=== PATIENT | male | born 1970 | race Caucasian/White ===

== ENCOUNTER 2018-11-01 06:54 | Day surgery (SDC) | payer OTHER, SELFPAY ==
--- NOTE | 2018-11-01 | PATH_ITS ---
[facility] Accession Number: [id number] . 01 Material submitted: . PART A: TRANSVERSE COLON POLYP PART B: RECTO-SIGMOID COLON POLYP . 02 Diagnosis: A. Transverse Colon Polyp: Polypoid-shaped fragment of colon mucosa associated with prominent mucosal lymphoid aggregate. Negative for dysplasia and malignancy. . B. Biopsy, Rectosigmoid Colon Polyp: Hyperplastic polyp involving both biopsy fragments. MRV/11/02/2018 . 02 Electronically signed: . Dm Carrillo MD, Pathologist NPI- [id number] . 01 Gross description: . Part A: TRANSVERSE COLON POLYP: Received in formalin are multiple fragment(s) of cheung, soft tissue measuring 0.5 x 0.3 x 0.2 cm submitted entirely in 1 cassette(s) Part B: RECTO-SIGMOID COLON POLYP: Received in formalin are 2 fragment(s) of cheung, soft tissue measuring 0.6 x 0.3 x 0.3 cm to 0.5 x 0.4 x 0.2 cm submitted entirely in 1 cassette(s) /CKI /CKI . 02 Pathologist provided ICD-10: K63.5 . 02 CPT . 689114, [id number] Performed at: 01 [facility] [address], [place], [place] [id number] MD Chavez Henley MD Phone: [phone] Performed at: 02 [facility] [address] [place], [place] [id number] MD Belen Muniz MD Phone: [phone]
[2018-11-01 07:07] VITALS: BP 155/106; PULSE 67; RESP 15; TEMP 36.1; O2SAT 96; BMI 39.9
[2018-11-01 07:19] VITALS: BMI 39.9
--- NOTE | 2018-11-01 07:45 | PM.HP.1 ---
History of Present Illness Date Patient Seen: 11/01/18 Chief complaint: colonoscopy [id number] Narrative: 48-year-old male with hypertension and hyperlipidemia who is here for colon cancer screening. He had a prior colonoscopy performed 2007 at [facility] which was unrevealing. Patient History Family & Social History Social History: household members spouse Meds Home Medications Medication Instructions Recorded Confirmed Type atorvastatin 40 mg tablet 40 mg PO DAILY 06/26/18 06/26/18 History lisinopril 20 mg tablet 20 mg PO DAILY 06/26/18 06/26/18 History Allergies Allergy/AdvReac Type Severity Reaction Status Date / Time bee venom protein (honey bee) AdvReac Unknown Verified 06/26/18 11:08 Review of Systems Review of Systems All systems reviewed & are unremarkable except as noted in HPI and below Exam Vital Signs (past 8 hours): - 11/01/18 07:07 Temperature 96.9 F L Pulse Rate 67 Respiratory Rate 15 Blood Pressure 155/106 H Pulse Oximetry 96 Oxygen Delivery Method Room Air Narrative Exam Narrative: General: Patient is obese, not in apparent distress Cardiovascular: Regular rate and rhythm, no murmurs, rubs, or gallops; no evidence of edema; no palpable abdominal aortic aneurysm Gastrointestinal: Normoactive bowel sounds, soft, nontender, nondistended, no rebound tenderness, no hepatosplenomegaly, no evidence of hernia Assessment & Plan Plan: Assessment/Plan Narrative: 48-year-old male who is here for colon cancer screening. He is at average risk for colon cancer. Regarding the procedure(s), the risks and potential complications, benefits, and alternatives (including not doing the procedure) were discussed with the patient. The risks include but are not limited to bleeding, splenic injury, infection, perforation which may require surgical intervention, missed lesions, and adverse reactions to sedative medicines. After a question and answer period, the patient agreed to proceed with the procedure(s) and gives informed consent.
--- NOTE | 2018-11-01 07:48 | P.HP_ITS ---
History of Present Illness Date Patient Seen: 11/01/18 Chief complaint: colonoscopy [id number] Narrative: 48-year-old male with hypertension and hyperlipidemia who is here for colon cancer screening. He had a prior colonoscopy performed 2007 at [facility] which was unrevealing. Patient History Family & Social History Social History: household members spouse Meds Home Medications Medication Instructions Recorded Confirmed Type atorvastatin 40 mg tablet 40 mg PO DAILY 06/26/18 06/26/18 History lisinopril 20 mg tablet 20 mg PO DAILY 06/26/18 06/26/18 History Allergies Allergy/AdvReac Type Severity Reaction Status Date / Time bee venom protein (honey bee) AdvReac Unknown Verified 06/26/18 11:08 Review of Systems Review of Systems All systems reviewed & are unremarkable except as noted in HPI and below Exam Vital Signs (past 8 hours): - 11/01/18 07:07 Temperature 96.9 F L Pulse Rate 67 Respiratory Rate 15 Blood Pressure 155/106 H Pulse Oximetry 96 Oxygen Delivery Method Room Air Narrative Exam Narrative: General: Patient is obese, not in apparent distress Cardiovascular: Regular rate and rhythm, no murmurs, rubs, or gallops; no evidence of edema; no palpable abdominal aortic aneurysm Gastrointestinal: Normoactive bowel sounds, soft, nontender, nondistended, no rebound tenderness, no hepatosplenomegaly, no evidence of hernia Assessment & Plan Plan: Assessment/Plan Narrative: 48-year-old male who is here for colon cancer screening. He is at average risk for colon cancer. Regarding the procedure(s), the risks and potential complications, benefits, and alternatives (including not doing the procedure) were discussed with the patient. The risks include but are not limited to bleeding, splenic injury, infection, perforation which may require surgical intervention, missed lesions, and adverse reactions to sedative medicines. After a question and answer period , the patient agreed to proceed with the procedure(s) and gives informed consent.
[2018-11-01] MEDS: SODIUM CHLORIDE 0.9% 1,000 ML 70 ML IV (08:01)
--- NOTE | 2018-11-01 08:08 | P.OP.ENDO_ITS ---
Operative Date/Time/Diagnoses Date of procedure: 11/01/18 Procedure Notes Procedure in detail: Surgeon: Abdoul Callejas MD Procedure: Colonoscopy with polypectomy Preoperative diagnosis: Average risk colon cancer screening Postoperative diagnosis: 3 colon polyps status post polypectomy, diverticulosis , internal hemorrhoids Medications: Conscious sedation using 4 mg IV of Midazolam and 100 mcg IV of Fentanyl Preanesthesia Assessment An H and P was performed/updated and the Px?s ASA class is 2. The procedure was discussed in detail with the patient. The potential risks and complications including infection, bleeding, missed lesions, perforation, need for surgery in case of perforation, prolonged hospital stay, and were explained. A brief question and answer period was allotted and once all questions were answered, informed consent was obtained. The patient was brought back to the procedure room and placed on standard monitoring. The patient?s vital signs were monitored continuously throughout the entire procedure. Prior to starting, a timeout was performed to confirm the patient?s identity, allergies, medications, and procedure. Procedure in detail The patient was placed in left lateral decubitus position and once adequate sedation was obtained a HUSAM was performed. The digital rectal examination did not reveal any palpable lesions. The tip of the colonoscope was placed in the anal canal and advanced without difficulty all the way to the cecum which was identified by the appendiceal orifice and the ileocecal valve. The terminal ileum was intubated to a distance of 5 cm from the ileocecal valve and the mucosa appeared normal. The colonoscope was then brought back to the cecum and careful examination of all verde of the colon was performed. In the transverse colon there was note of a 2 mm sessile polyp which was removed by means of a cold Jumbo forceps with minimal bleeding. Resection and retrieval were complete. In the rectosigmoid colon there was note of a 3 mm sessile polyp which was removed by means of a cold Jumbo forceps with minimal bleeding. Resection and retrieval were complete. In the rectosigmoid colon there was note of a 5 mm sessile polyp which was removed by means of a cold snare with minimal bleeding. Resection and retrieval were complete There was note of multiple medium to large-sized diverticula in the transverse colon extending all the way to the sigmoid colon. Retroflexion was performed in the rectum which revealed grade 2 internal hemorrhoids. The patient tolerated the procedure well and will be brought back to the recovery area to be discharged once criteria are met. The prep was judged to be good/excellent and adequate to identify polyps less than 5 mm. The withdrawal time was 11 min. The total physician intraservice time was 16 min. Complications There were no complications and estimated blood loss was minimal. Recommendations: Resume previous diet Continue outPx medications Follow up pathology results Repeat colonoscopy in 3 or 5 or 10 years, depending on pathology results An emergency contact number was given to the patient for any complications related to the procedure
[2018-11-01] MEDS: MIDAZOLAM 5 MG/5 ML VIAL IV (08:30)
[2018-11-01 08:37] VITALS: BP 123/84; PULSE 61; RESP 14; TEMP 36.3; O2SAT 97
--- NOTE | 2018-11-01 08:38 | P.DS_ITS ---
History of Present Illness Chief complaint: colonoscopy [id number] Narrative: 48-year-old male with hypertension and hyperlipidemia who is here for colon cancer screening. He had a prior colonoscopy performed 2007 at [facility] which was unrevealing. Discharge Providers Primary care physician: Elina Dhaliwal MD Discharge provider: Abdoul Callejas MD Discharge Date: 11/01/18 Exam Vital Signs (past 8 hours): - 11/01/18 07:07 Temperature 96.9 F L Pulse Rate 67 Respiratory Rate 15 Blood Pressure 155/106 H Pulse Oximetry 96 Oxygen Delivery Method Room Air Narrative Exam Narrative: General: Patient is obese, not in apparent distress Cardiovascular: Regular rate and rhythm, no murmurs, rubs, or gallops; no evidence of edema; no palpable abdominal aortic aneurysm Gastrointestinal: Normoactive bowel sounds, soft, nontender, nondistended, no rebound tenderness, no hepatosplenomegaly, no evidence of hernia Discharge Plan Discharge Plan Discharge comment: Discharge patient with a copy of procedure report Discharge Med Rec/Prescriptions Prescriptions: No Action atorvastatin 40 mg tablet 40 mg PO DAILY RF: 0 lisinopril 20 mg tablet 20 mg PO DAILY RF: 0 Discharge Orders: Discharge (Order); Ordered 11/01/18 Ordered By: Abdoul Callejas Provider Discharge Instructions Diet: Diet as Tolerated Visit Report/Discharge Packet Stand Alone Forms: Surgery Discharge Discharge Data Primary Care Provider: Elina Dhaliwal Attending Provider: Abdoul Callejas
[2018-11-01 08:42] VITALS: BP 120/64; PULSE 71; RESP 12; O2SAT 98
[2018-11-01 08:45] VITALS: BP 121/77; PULSE 61; RESP 12; TEMP 36.2; O2SAT 98
[2018-11-01] MEDS: fentaNYL 250 MCG/5 ML INJ IV (08:45)
== END 2018-11-01 08:58 | disposition home or self-care (01) ==
PROVIDERS: Family Provider Internal Medicine; PCP Internal Medicine; Visit Provider Internal Medicine Gastroenterology
PROC: 0DJD8ZZ Inspection of Lower Intestinal Tract, Via Natural or Artificial Opening Endoscopic (ICD-10-PCS; CPT 45378; principal; 2018-11-01 08:30)
DX: Z12.11 Encounter for screening for malignant neoplasm of colon (principal); K57.30 Diverticulosis of large intestine without perforation or abscess without bleeding; K64.1 Second degree hemorrhoids; K63.5 Polyp of colon
CPT/HCPCS: 45385; 45380; J2250; J3010

== ENCOUNTER → 2018-11-06 08:16 | Outpatient (CLI) | payer OTHER, SELFPAY ==
[2018-11-06 09:42] LABS: Alanine Aminotransferase 61 IU/L (21-72); Aspartate Aminotransferase 30 IU/L (17-59); Cholesterol 164 mg/dL (140-199); HDL Cholesterol 45 mg/dL (40-60); LDL Cholesterol Calculated 97 mg/dL (<100); Triglycerides 109 mg/dL (35-150)
== END ==
PROVIDERS: PCP Internal Medicine; Visit Provider Internal Medicine
DX: E78.00 Pure hypercholesterolemia, unspecified (principal); I10 Essential (primary) hypertension
CPT/HCPCS: 36415; 80061; 84450; 84460

== ENCOUNTER → 2019-06-15 07:10 | Outpatient (CLI) | payer OTHER, SELFPAY ==
--- NOTE | 2019-06-15 | DI.US.S_ITS ---
PROCEDURE: US EXTREMITY NONVASC LOWER LT INDICATIONS: LEFT OAKES LUMP TECHNIQUE: Real-time scanning was performed of the air current clinical concern flexion and region lump, with image documentation. COMPARISON: None. FINDINGS: Normal examination. IMPRESSION: No source of clinical finding of lump which is reported to be decreasing in size. Dictated by: Olivier Infante M.D. on 06/15/2019 at 11:59 Approved by: Olivier Infante M.D. on 06/15/2019 at 12:00
== END ==
PROVIDERS: Family Provider Internal Medicine; PCP Internal Medicine; Visit Provider Internal Medicine
DX: L03.116 Cellulitis of left lower limb (principal)
CPT/HCPCS: 76882

== ENCOUNTER → 2021-02-26 08:15 | Outpatient (CLI) | payer OTHER, SELFPAY ==
[2021-02-26 09:34] LABS: Alanine Aminotransferase 34 IU/L (<50); Albumin 4.1 g/dL (3.5-5.0); Albumin Globulin Ratio 1.5 (1.0-2.8); Alkaline Phosphatase 69 U/L (38-126); Aspartate Aminotransferase 32 IU/L (17-59); BUN Creatinine Ratio 22.4 (6-22); Bilirubin Total 0.5 mg/dL (0.2-1.3); Blood Urea Nitrogen 17 mg/dL (9-20); Calcium 9.1 mg/dL (8.4-10.2); Carbon Dioxide 25 mmol/L (22-32); Chloride 108 mmol/L (98-107); Cholesterol 175 mg/dL (140-199); Estimated Glomerular Filt Rate > 60.0 mL/min (>60); Globulin 2.7 g/dL (1.7-4.1); Glucose 119 mg/dL (70-100); HDL Cholesterol 55 mg/dL (40-60); HEMOLYSIS < 15 (0-50); LDL Cholesterol Calculated 103 mg/dL (<100); Potassium 4.2 mmol/L (3.4-5.1); Sodium 139 mmol/L (137-145); Total Protein 6.8 g/dL (6.3-8.2); Triglycerides 83 mg/dL (35-150)
== END ==
PROVIDERS: Family Provider Internal Medicine; PCP Internal Medicine; Referring Provider Internal Medicine; Visit Provider Internal Medicine
DX: I10 Essential (primary) hypertension (principal); E78.00 Pure hypercholesterolemia, unspecified
CPT/HCPCS: 36415; 80053; 80061

== ENCOUNTER → 2025-06-26 08:13 | Outpatient (CLI) | payer OTHER, SELFPAY ==
[2025-06-26 08:38] LABS: Add Manual Diff / Slide Review NO; Hematocrit 42.5 % (41-53); Hemoglobin 14.6 g/dL (13.5-17.5); Lymphocytes Absolute Auto 1900 /uL (1100-4500); Mean Corpuscular HGB Conc 34.3 % (30-36); Mean Corpuscular Hemoglobin 28.8 PG (26-34); Mean Corpuscular Volume 84.0 fL (80-100); Platelet Count 250 X10^3/uL (150-400)
--- NOTE | 2025-06-26 08:40 | EKG_ITS ---
[place] [id number] [place] [address] Test Date: 2025-06-26 Pat Name: Feliciano Horne Department: [facility] Room: Gender: Male In Home Nanny: BLANCHE : 1970 Requested By: Order Number: [id number] Reading MD: Behzad Funes Measurements Intervals Norton Rate: 86 P: 60 CT: 196 QRS: 3 QRSD: 140 T: 23 QT: 388 QTc: 464 Interpretive Statements Normal sinus rhythm Right bundle branch block Cannot rule out Inferior infarct , age undetermined Electronically Signed On 06-29-2025 9:20:41 PDT by Behzad Funes
[2025-06-26 08:52] LABS: Hemoglobin A1C% w Est Avg Glu 6.2 % (4.0-6.0)
[2025-06-26 08:59] LABS: Albumin 4.6 g/dL (3.5-5.0); Blood Urea Nitrogen 24 mg/dL (9-20); Calcium 9.6 mg/dL (8.4-10.2); Carbon Dioxide 24 mmol/L (22-32); Chloride 109 mmol/L (98-107); Estimated Glomerular Filt Rate > 60 mL/min (>60); Glucose 126 mg/dL (70-99); HEMOLYSIS < 15 (0-50); Potassium 4.4 mmol/L (3.4-5.1); Sodium 143 mmol/L (137-145)
[2025-06-26 09:07] LABS: Prealbumin 28.8 mg/dL (17.6-36.0)
[2025-06-26 09:17] LABS: Vitamin D 25 Hydroxy (D3) 37.6 ng/mL (30.0-100.0)
== END ==
PROVIDERS: PCP Internal Medicine; Referring Provider Orthopaedic Surgery Adult Reconstructive Orthopaedic Surgery; Visit Provider Orthopaedic Surgery Adult Reconstructive Orthopaedic Surgery
DX: Z01.812 Encounter for preprocedural laboratory examination (principal); Z96.641 Presence of right artificial hip joint
CPT/HCPCS: 36415; 80048; 82040; 82306; 82495; 83018; 83036; 84134; 85025; 93005

== ENCOUNTER 2025-08-21 07:30 | Outpatient (RCR) | payer OTHER, SELFPAY ==
--- NOTE | 2025-07-12 08:05 | PT.OPPOC ---
Physical, Occupational & Speech Therapy At [facility] Current Diagnoses Unilateral primary osteoarthritis, left hip (07/12/25) Visit Care Team Role Provider Type Elina Dhaliwal MD Family Provider Physician Primary Care Provider Specialty: Internal Medicine Address: [place], [address] Email: Adelso Cade MD Attending Provider Physician Referring Provider Specialty: Orthopedics Orthopedic Surgery Address: [facility] [address], [place], [address] Fax: Email: [email or web address] Plan Of Care PT OP: Lower Back/Lower Extremity Start: 07/12/25 07:05 Freq: Status: Active Protocol: Document 07/12/25 07:06 BL (Rec: 07/12/25 08:04 BL Laptop) Out-Patient Physical Therapy Visit Information Visit Information Visit Type Initial Evaluation Visit Start Time 07:30 Visit Stop Time 08:10 Visit Number 1 (11/30) Number of SHIFT SUPERVISOR MELTING Visits 0 Progress Note Due 08/11/25 Precautions Precautions End Stage Osteoarthritis to L hip OP-PT Subjective Patient Comments Patient Comments Pt presents to the clinic with concerns for L hip pain. Pt reports he has had considerable pain for a number of years however his symptoms are now affecting his ability to complete ADLS and fitness hobbies. Pt reports he met with orthopedics and it was decided having a ANTIONETTE will be the best course of action however due to insurance limitations he needs to trial PT first . He was also instructed that he needs to loose some weight prior and has been working with his doctor on this. Pt states greatest pain is with movement away from his body and with loaded rotation activities. 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 Pt reports sleeping is starting to become difficult. Pt reprots the pain as a dull ach that can become sharp and shooting with activity. Pt denies any changes in coordination or sensation. Pt reports rest seems to improve his symptoms along with Celebrex and Tylenol. Patient Questionnaires Lower Extremity Functional Scale LEFS Score 54 function Balance Tests Single Limb Standing Single Limb- Right 8 Single Limb- Left 8 Posture Evaluation Comments Posture Comments Pt ambulates with WBOS and decreased stance time on L LE. Palpation Assessment Location L hip Palpation Details Pt is point tender with palpation to L posterior L hip and SI area. Lumbar Spine Range of Motion Lumbar Spine Active Percentage Testing Position Standing Flexion 100 Extension 75 Rotation Left 100 Rotation Right 100 Lateral Flexion Left 75 Lateral Flexion 75 Right Comments increased pain noted through L hip with extension. Hip Goniometric Range of Motion Hip Measured in Degrees right Hip ROM WFL Yes left Flexion w/Knee 90 Flexed Straight Leg Raise 80 Extension 0 Abduction 30 Internal Rotation 0 External Rotation 30 Comments pain at all end ranges, most sever into flexion, abduction, IR Knee Goniometric Range of Motion Knee Measured in Degrees Right Knee ROM WFL Yes Left Knee ROM WFL Yes Hip Strength Hip Manual Muscle Testing Right Flexion (L2) 4+ Good+ Extension (S1) 4+ Good+ Abduction 5 Normal Adduction 5 Normal External Rotation 5 Normal Internal Rotation 5 Normal Left Flexion (L2) 4+ Good+ Extension (S1) 4 Good Abduction 4+ Good+ Adduction 5 Normal External Rotation 5 Normal Internal Rotation 4+ Good+ Knee Strength Knee Manual Muscle Testing Right Flexion (S2) 5 Normal Extension (L3) 5 Normal Left Flexion (S2) 5 Normal Extension (L3) 5 Normal Therapeutic Exercises Supine Exercises strength Supine Exercise Name SLR w/ ER, Comments 10x Sidelying Exercises strength Sidelying Exercise Clamshells, Reverse clamshells Name Resistance lvl 3 band Comments 10x Physical Therapy Assessment Rehab Potential Rehabilitation Fair Potential Evaluation Complexity Number of Personal 1-2 Factors/ Comorbidities Number of Body 3 Systems Impaired Clinical Evolving Presentation at Evaluation Impairments Impairments Activity Tolerance,Functional Activities,Functional Mobility,Gait,Pain,Posture,ROM,Soft Tissue Mobility, Strength,Transfers Goals Three Penitentiary Goal (LTG) Pt will report being able to hike for 1hr or greater by DC for improved completion of hobbies. Two Penitentiary Goal (LTG) Pt will demo improved LEFS score to 70 or better by DC for improved quality of life. One Short Term Goal (STG pt will be ind with HEP within 2 visits in order to ) progress toward termite control technician therapy goals outside of therapy visits. Penitentiary Goal (LTG) Pt will demo improved L hip IR strength to 5/5 by DC for improved functional stability with ADLS Assessment Summary Assessment Pt presents with concerns for L hip pain. Pt demos Loss or AROM/PROM to L hip as well as decreased strength. Pt also demos increased pain with functional activities . Pt above findings are limiting pts ability to complete ADLS. Imaging reveals sever end stage degeneration to L hip and will most likely benefit from orthopedic intervention in the future however skilled Physical Therapy intervention will be vital for strength and endurance training to improve mobility pre and post operation. Physical Therapy Plan Frequency and Duration Frequency of 2x/Week Treatment Duration of 12 treatment (weeks) Plan of Care Start 07/12/25 Date Plan of Care End 10/04/25 Date Therapeutic Interventions Therapeutic Balance Training,Coordination Training,Gait Training, Interventions Home Exercise Program,Joint Mobilizations,Manual Therapy,Neuromuscular Re-education,Orthotic/Prosthetic Management,Patient/Caregiver Education,Self-Care/Home Management,Sensory Integration,Soft Tissue Mobilization ,Taping,Therapeutic Activities,Therapeutic Exercises Modalities Cold Pack/Ice Massage,Electric Stimulation,Hot Packs, Infrared Therapy,Iontophoresis,Ultrasound Next Visit Focus/Plan Next Note Type Treatment Note Next Visit Plan Advance HEP for strength and endurance training in preparation of L hip ANTIONETTE. Plan of Care Dates Plan of Care Start Date 07/12/25 Plan of Care End Date 10/04/25 Electronically Signed by: Cristi Ferreira, PT 07/12/25 0805 If you are in agreement with this Plan of Care, please return a signed and dated copy. I have reviewed this Plan of Care and certify that the skilled therapy services above are required to meet the patient?s needs. Physician Signature Date Printed Name and Credentials Clinical Instructor Signature Printed Name and Credentials
--- NOTE | 2025-07-25 10:39 | PT.OTN ---
Current Diagnoses Unilateral primary osteoarthritis, left hip (07/25/25) Physical Therapy Treatment Note PT OP: Lower Back/Lower Extremity Start: 07/12/25 07:05 Freq: Status: Active Protocol: Document 07/25/25 09:49 BL (Rec: 07/25/25 10:38 BL Laptop) Out-Patient Physical Therapy Visit Information Visit Information Visit Type Initial Evaluation Visit Start Time 09:45 Visit Stop Time 10:25 Visit Number 2 (12/31) Number of SOLAR CONSULTANT Visits 0 Progress Note Due 08/11/25 OP-PT Subjective Patient Comments Patient Comments Pt presents to the clinic this date and reports he is doing well, states his symptoms feel about the same, continues to report anterior hip pain is his greatest concern. Therapeutic Exercises Supine Exercises stretch Supine Exercise Name modified Ulisses stretch Comments 3x 30' SB Supine Exercise Name 90/90 bridges and hamsting curls Comments 2x10 strength Supine Exercise Name SLR w/ ER (reviewed Comments 10x Sidelying Exercises strength2 Sidelying Exercise hip abduction with extension, hip adduction with L LE Name on elevated surface. Equipment Used lvl 3 Comments 2x10 strength Sidelying Exercise Clamshells, Reverse clamshells, reviewed Name Resistance lvl 3 band Comments 10x Manual Therapy Treatment Joint Mobilizations Distraction Comments hip flexor distraction with mobilization strap, pt in supine with L LE in 90 deg of hip flexion with distal and lateral pull. 3 x 30 sec pull. Pt tolerates well with improved mobility and symptoms following. Physical Therapy Assessment Goals Three [facility] Goal (LTG) Pt will report being able to hike for 1hr or greater by DC for improved completion of hobbies. Two Electrotherapist Goal (LTG) Pt will demo improved LEFS score to 70 or better by DC for improved quality of life. One Short Term Goal (STG pt will be ind with HEP within 2 visits in order to ) progress toward exterminator helper termite therapy goals outside of therapy visits. [facility] Goal (LTG) Pt will demo improved L hip IR strength to 5/5 by DC for improved functional stability with ADLS Assessment Summary Assessment Pt tolerates advancement in HEP for hip stability strengthening. Continues to have greatest limitation in hip flexion control activities. Continue to advance HEP per pt tolerance. Physical Therapy Plan Frequency and Duration Frequency of 2x/Week Treatment Duration of 12 treatment (weeks) Plan of Care Start 07/12/25 Date Plan of Care End 11/14/25 Date Next Visit Focus/Plan Next Note Type Treatment Note Next Visit Plan Advance HEP for strength and endurance training in preparation of L hip ANTIONETTE.
--- NOTE | 2025-07-31 08:55 | PT.OTN ---
Current Diagnoses Unilateral primary osteoarthritis, left hip (07/31/25) Physical Therapy Treatment Note PT OP: Lower Back/Lower Extremity Start: 07/12/25 07:05 Freq: Status: Active Protocol: Document 07/31/25 08:10 BL (Rec: 07/31/25 08:54 BL Laptop) Out-Patient Physical Therapy Visit Information Visit Information Visit Type Treatment Note Visit Start Time 08:15 Visit Stop Time 08:55 Visit Number 3 (01/28) Number of POLICE SHIFT COMMANDER Visits 0 Progress Note Due 08/11/25 Precautions Precautions End Stage Osteoarthritis to L hip OP-PT Subjective Patient Comments Patient Comments Pt presents to the clinic this date and reports he is doing well, states his symptoms feel about the same, continues to report anterior hip pain is his greatest concern. States HEP is going well but feels fatigued following. Therapeutic Exercises Supine Exercises stretch Supine Exercise Name modified Ulisses stretch, jessie LE Comments 3x 30' SB Supine Exercise Name 90/90 bridges and hamsting curls Comments 2x10 strength Supine Exercise Name SLR w/ ER (reviewed) Comments 10x Sidelying Exercises strength2 Sidelying Exercise hip abduction with extension, hip adduction with L LE Name on elevated surface. Equipment Used lvl 3 Comments 2x10 strength Sidelying Exercise Clamshells, Reverse clamshells, reviewed Name Resistance lvl 3 band Comments 10x Manual Therapy Treatment Consent Patient gave verbal Yes consent for manual treatment Soft Tissue Mobilization L hip Comments DTM w/TPR to hip flexors and anterior hip. Joint Mobilizations Distraction Comments hip flexor distraction with mobilization strap, pt in supine with L LE in 90 deg of hip flexion with distal and lateral pull. 3 x 30 sec pull. Pt tolerates well with improved mobility and symptoms following. Physical Therapy Assessment Goals Three Chief Airline Radio Operator Goal (LTG) Pt will report being able to hike for 1hr or greater by DC for improved completion of hobbies. Two Chief Airline Radio Operator Goal (LTG) Pt will demo improved LEFS score to 70 or better by DC for improved quality of life. One Short Term Goal (STG pt will be ind with HEP within 2 visits in order to ) progress toward rat exterminator therapy goals outside of therapy visits. Long-Term Goal (LTG) Pt will demo improved L hip IR strength to 5/5 by DC for improved functional stability with ADLS Assessment Summary Assessment Pt tolerates advancement in HEP for hip stability strengthening. Continues to have greatest limitation in hip flexion control activities. Continue to advance HEP per pt tolerance. Physical Therapy Plan Frequency and Duration Frequency of 2x/Week Treatment Duration of 12 treatment (weeks) Plan of Care Start 07/12/25 Date Plan of Care End 10/04/25 Date Next Visit Focus/Plan Next Note Type Treatment Note Next Visit Plan Advance HEP for strength and endurance training in preparation of L hip ANTIONETTE.
--- NOTE | 2025-08-13 09:05 | PT.OTN ---
Current Diagnoses Unilateral primary osteoarthritis, left hip (08/13/25) Physical Therapy Treatment Note PT OP: Lower Back/Lower Extremity Start: 07/12/25 07:05 Freq: Status: Active Protocol: Document 08/13/25 13:00 SP (Rec: 08/13/25 09:08 SP [id number]) Out-Patient Physical Therapy Visit Information Visit Information Visit Type Treatment Note Visit Note ADELITA Cowart assisted with LEFS questionaire inquiry for goal update and assisted FIGURE REFINISHER AND REPAIRER Juan Carlos with HEP HO for SL bridge progression for pt to take home with permision of pt and under direct instruction of FIGURE REFINISHER AND REPAIRER Juan Carlos. Visit Start Time 08:16 Visit Stop Time 09:05 Visit Number 4(02/28) Number of FIGURE REFINISHER AND REPAIRER Visits 1 Progress Note Due 08/11/25 Precautions Precautions End Stage Osteoarthritis to L hip OP-PT Subjective Patient Comments Patient Comments Pt states is doing as best can with HEP. He states can' t hike right now, can't even walk around the block. 5/ 10 L anterior to posterior hip pain arrival today. He did some diving and pain up/down ladder. Going up/down stairs doing well but if carrying weight causes irritation. Able to carry about 100# weight getting in/ out water to dive as long as not lateral movement. He goal wanted to have L hip surgery end of Sep. Insurance denied initial referral request, Arroyo stated needed to decrease 40lbs weight, see PT and assess later and hopful will approve surgery. HE comments rolling over Patient Questionnaires Lower Extremity Functional Scale LEFS Score 39 LEFS Impairment 40 to 59% Impaired (Score 32-47) Cardio Equipment Recumbent Bicycle Duration (Minutes) 10 Resistance 5 Seat Position 6 Gym Equipment Shuttle Recovery Unilateral Squat Details Limited range flexion on L, full range R Resistance 50 L, 75 R Shuttle Recovery Stable Platform Reps/Time 10 L, 15 R Billateral Squat Details (performs home with total gym with incline of 3 for some incr resistance) Resistance 87 Reps/Time 20 Therapeutic Exercises Supine Exercises Bridge Supine Exercise Name 90/90 bridges Side bilateral Resistance AROM blue ball between knees, TB #3 (had red home same strength) Reps/Minutes 10 reps each Comments reviewed with added resistance, good form and effort. SL bridge Supine Exercise Name Single leg bridge, added to HEP with HO Side bilateral Resistance AROM Reps/Minutes 10 Comments Cues for alignment, slow up and down within range that does not increase pn HS curls Supine Exercise Name verbal review Resistance AROM Equipment Used TBall stretch Supine Exercise Name modified Ulisses stretch Side left Reps/Minutes 3x 30' during tx Sidelying Exercises strength2 Sidelying Exercise hip abduction with extension, hip adduction with L LE Name on elevated surface. Resistance using personal red band (lV 3 at knees) Reps/Minutes 10 x2 Comments verbal review strength Sidelying Exercise Clamshells, Reverse clamshells, reviewed Name Resistance using personal red band (lV 3 at knees) Reps/Minutes 10 Standing Exercises Resisted Stepping Standing Exercise trialed L anterior hip irritation Name Side bilateral Resistance Tb #3 at thighs Reps/Minutes 10 f tx2 lengths Comments DC for now Manual Therapy Treatment Consent Patient gave verbal Yes consent for manual treatment Joint Mobilizations Distraction Joint L hip: posterolateral, anteromedial, lateral with strap Comments Pt tolerates well with improved mobility and symptoms following anteromedial. Physical Therapy Assessment Goals Three [facility] Goal (LTG) Pt will report being able to hike for 1hr or greater by DC for improved completion of hobbies. 08/13/25: can't hike right now, can't even walk around the block. 5/10 knee pain arrival today. He did some diving and pain up/down ladder. Going up/down stairs doing well but if carrying weight causes irritation. Carrying weight getting in/out water to dive as long as not lateral movement. LTG Duration updated 08/13/25 Two Impairment LEFS score 54 at eval Wax Ball Molder Goal (LTG) Pt will demo improved LEFS score to 70 or better by DC for improved quality of life. 08/13/25 LEFS raw score 39, 50% maximal function. LTG Duration updated 08/13/25 One Short Term Goal (STG pt will be ind with HEP within 2 visits in order to ) progress toward [facility] therapy goals outside of therapy visits. 08/13/25: resisted clamshell, bridge with band, 08/13/25 added B single leg bridge STG Duration updated 08/13/25 Wax Ball Molder Goal (LTG) Pt will demo improved L hip IR strength to 5/5 by DC for improved functional stability with ADLS Assessment Summary Assessment PT Dane /ISAK spoke to patient, is due for 30 day PN today, primary PT not in clinic today. Pt continues to have pain in anterior L hip that limits his mobilty and hasnt' been able to return to small walks outside level surfaces. He noted small improvement in decreased anterior L hip tension reduction post manual and stretching. Is compliant with HEP at home mostly AROM. Today he tolerated progression in hip strengthening today with added resistance band to clamshells and SL bridge AROM for home with no pain. He trialed resisted stepping but did not tolerate with c/o L hip irritation so stopped. Pt would benefit from continued skilled PT for ROM and strengthen to tolerance for mobility and return to ADLs with out pain. Pt is hoping to get approved for L hip surgery as planned but knows is limited and understanding of surgeon suggestions and received a denial by insurance at this time recommended to attend PT at this time. Has lost 15/40 lbs recommended at this point. Physical Therapy Plan Frequency and Duration Frequency of 2x/Week Treatment Duration of 12 treatment (weeks) Plan of Care Start 07/12/25 Date Plan of Care End 10/04/25 Date Therapeutic Interventions Therapeutic Balance Training,Coordination Training,Gait Training, Interventions Home Exercise Program,Joint Mobilizations,Manual Therapy,Neuromuscular Re-education,Orthotic/Prosthetic Management,Patient/Caregiver Education,Self-Care/Home Management,Sensory Integration,Soft Tissue Mobilization ,Taping,Therapeutic Activities,Therapeutic Exercises Modalities Cold Pack/Ice Massage,Electric Stimulation,Hot Packs, Infrared Therapy,Iontophoresis,Ultrasound Next Visit Focus/Plan Next Note Type Progress Note Next Visit Plan PT to complete PN today. Recheck Advance HEP for strength added resistance band. POC: progress endurance training in preparation of L hip ANTIONETTE.
--- NOTE | 2025-08-13 12:54 | PT.OPPN ---
Current Diagnoses Unilateral primary osteoarthritis, left hip (08/13/25) Physical Therapy Progress Note PT OP: Lower Back/Lower Extremity Start: 07/12/25 07:05 Freq: Status: Active Protocol: Document 08/13/25 12:46 [facility] (Rec: 08/13/25 12:54 [facility] [id number]) Out-Patient Physical Therapy Visit Information Visit Information Visit Type Progress Note Progress Note Due 09/12/25 Physical Therapy Assessment Goals Three Freight Adjuster Goal (LTG) Pt will report being able to hike for 1hr or greater by DC for improved completion of hobbies. 08/13/25: can't hike right now, can't even walk around the block. 5/10 knee pain arrival today. He did some diving and pain up/down ladder. Going up/down stairs doing well but if carrying weight causes irritation. Carrying weight getting in/out water to dive as long as not lateral movement. LTG Duration updated 08/13/25 Two Impairment LEFS score 54 at eval Freight Adjuster Goal (LTG) Pt will demo improved LEFS score to 70 or better by DC for improved quality of life. 08/13/25 LEFS raw score 39, 50% maximal function. LTG Duration updated 08/13/25 One Short Term Goal (STG pt will be ind with HEP within 2 visits in order to ) progress toward long term acute care registered nurse therapy goals outside of therapy visits. 08/13/25: resisted clamshell, bridge with band, 08/13/25 added B single leg bridge Freight Adjuster Goal (LTG) Pt will demo improved L hip IR strength to 5/5 by DC for improved functional stability with ADLS Assessment Summary Assessment Pt appears to cont to decline w/L hip pain despite PT d /t significant pain in hip with movements especially if unstable. He has a small improvements short term w/ manual care. He is participating in HEP and compliant with this, but is limited in ability to exercise as hip pain stops him. He would benefit from further PT for further strengthening, but also is unlikely to improve enough w/PT to avoid hip replacement surgery as he has severe OA per xrays and continues to have pain despite strengthening and manual care. Physical Therapy Plan Frequency and Duration Frequency of 2x/Week Treatment Duration of 12 treatment (weeks) Plan of Care Start 07/12/25 Date Plan of Care End 10/04/25 Date Therapeutic Interventions Therapeutic Balance Training,Coordination Training,Gait Training, Interventions Home Exercise Program,Joint Mobilizations,Manual Therapy,Neuromuscular Re-education,Orthotic/Prosthetic Management,Patient/Caregiver Education,Self-Care/Home Management,Sensory Integration,Soft Tissue Mobilization ,Taping,Therapeutic Activities,Therapeutic Exercises Modalities Cold Pack/Ice Massage,Electric Stimulation,Hot Packs, Infrared Therapy,Iontophoresis,Ultrasound Next Visit Focus/Plan Next Note Type Treatment Note Next Visit Plan Encourage follow up w/Dr. douglass for weight management medicine Advance HEP for strength and endurance training in preparation of L hip ANTIONETTE.
--- NOTE | 2025-08-16 14:45 | PT.OTN ---
Current Diagnoses Unilateral primary osteoarthritis, left hip (08/16/25) Physical Therapy Treatment Note PT OP: Lower Back/Lower Extremity Start: 07/12/25 07:05 Freq: Status: Active Protocol: Document 08/16/25 09:03 PD (Rec: 08/16/25 09:48 PD [id number]) Out-Patient Physical Therapy Visit Information Visit Information Visit Type Treatment Note Visit Note ADELITA Cowart led tx session with permission of pt and under direct instruction of ISAK Mayen. Visit Start Time 09:03 Visit Stop Time 09:47 Visit Number 5(03/30) Number of BREAKFAST COOK Visits 2 Progress Note Due 09/12/25 Precautions Precautions End Stage Osteoarthritis to L hip OP-PT Subjective Patient Comments Patient Comments Pt is states still feeling sore from last session. He has still been able to move and lift 75# at work but has to go slowly. Pt reports he is taking GLP1 meds which he has been prescribed through his primary care physician. He doesn't feel need to follow up with Dr. Pan. Only HEP able to do was the ball bridge, stretching for piriformis, and Ulisses stretch, he also does the pigeon stretch on the ground. He can get down and rise from ground pretty smoothly. Cardio Equipment Recumbent Bicycle Duration (Minutes) 5 Resistance 8 Seat Position 6 Gym Equipment Shuttle Recovery Unilateral Squat Details Full range B Resistance 50 L, 50 R (pt request same B) Shuttle Recovery Stable Platform Reps/Time 1 x 10,1 x 5 L, 2 x 10 R Billateral Squat Details (performs home with total gym with incline of 3 for some incr resistance) Resistance 87 Shuttle Recovery Stable Platform Reps/Time 2 x 10 Therapeutic Exercises Supine Exercises SL bridge Supine Exercise Name Single leg bridge, pt did not add to HEP last week, try this week Side bilateral Resistance AROM Reps/Minutes x 3 Comments Pt gets some HS cramping, try different foot positions Standing Exercises Standing isometric hip abd Standing Exercise Isometric hip adbuction side standing to wall, pushing Name bent leg into wall Side bilateral Equipment Used wall Reps/Minutes 2 x 30-60, don't increase pain Comments Position/ex triggers L hip jt pn to 3 but not beyond, feels ant/post on L Step Downs Standing Exercise Trialed prior tx, caused pn - hold Name Other Exercises 1/2 kneel stretch Other Exercise Name Trialed 1/2 kneel HF stretch using dowl for fw hand Side bilateral Equipment Used dowel Reps/Minutes 10 seconds each side Comments Pt reports stretch okay as long as he doesn't extend too far Quadruped stretches Other Exercise Name 1. Lovejoy stretch L, 2. Child's pose w/ and w/o 55 cm ball Side bilateral Equipment Used 55 cm ball Reps/Minutes 1 each, each side Comments Pt does pigeon bilaterally in HEP, child's new Quadruped Ex Other Exercise Name 1. QP B hip abduction, alternating 2. LE extension 3. UE/LE extension Reps/Minutes 5 x each side for each Comments VC and TC for head/back posture, engage core, stable pelvis Physical Therapy Assessment Goals Three Offset Plate Maker Goal (LTG) Pt will report being able to hike for 1hr or greater by DC for improved completion of hobbies. 08/13/25: can't hike right now, can't even walk around the block. 5/10 knee pain arrival today. He did some diving and pain up/down ladder. Going up/down stairs doing well but if carrying weight causes irritation. Carrying weight getting in/out water to dive as long as not lateral movement. LTG Duration updated 08/13/25 Two Impairment LEFS score 54 at eval Usp Goal (LTG) Pt will demo improved LEFS score to 70 or better by DC for improved quality of life. 08/13/25 LEFS raw score 39, 50% maximal function. LTG Duration updated 08/13/25 One Short Term Goal (STG pt will be ind with HEP within 2 visits in order to ) progress toward group home therapy goals outside of therapy visits. 08/13/25: resisted clamshell, bridge with band, 08/13/25 added B single leg bridge Offset Plate Maker Goal (LTG) Pt will demo improved L hip IR strength to 5/5 by DC for improved functional stability with ADLS Assessment Summary Assessment Pt feeling more sore from when he came in, pn at 5/10 but that is baseline according to him. He likes that he has some new exercises to work on (QP positions, wall hip abduction). Physical Therapy Plan Frequency and Duration Frequency of 2x/Week Treatment Duration of 12 treatment (weeks) Plan of Care Start 07/12/25 Date Plan of Care End 10/04/25 Date Next Visit Focus/Plan Next Note Type Treatment Note Next Visit Plan Assess soreness/pn following this session with addition of QP exercises and wall abduction isometric, doing in HEP? Advance tx and HEP for strength and endurance within pt tolerance in prep for L hip ANTIONETTE. Check to see if pt wants printed HEP HOs.
--- NOTE | 2025-08-21 08:45 | PT.OPDS ---
Current Diagnoses Unilateral primary osteoarthritis, left hip (08/21/25) Visit Care Team Role Provider Type Elina Dhaliwal MD Family Provider Physician Primary Care Provider Specialty: Internal Medicine Address: [place], [address] Email: Adelso Cade MD Attending Provider Physician Referring Provider Specialty: Orthopedics Orthopedic Surgery Address: [address] [place] [address] [place], [address] Fax: Email: [email or web address] Visit Number Visit Number 6 Discharge Summary PT OP: Lower Back/Lower Extremity Start: 07/12/25 07:05 Freq: Status: Active Protocol: Document 08/21/25 07:30 [facility] (Rec: 08/21/25 08:45 [facility] [id number]) Out-Patient Physical Therapy Visit Information Visit Information Visit Type Discharge Summary Visit Start Time 07:33 Visit Stop Time 08:14 Visit Number 6 Number of MANUFACTURING ENGINEER Visits 0 Progress Note Due 09/12/25 OP-PT Subjective Patient Comments Patient Comments Pt reports he is compliant with exercises and has lost 15 lbs. He is working to lose weight but is frustrated because exercise inc pain so it makes it difficult for wt loss. pain cont to progress in ant hip. Hip Strength Hip Manual Muscle Testing Right Flexion (L2) 5 Normal Extension (S1) 5 Normal Abduction 5 Normal Adduction 5 Normal External Rotation 5 Normal Internal Rotation 5 Normal Left Flexion (L2) 5 Normal Extension (S1) 5 Normal Abduction 3 Fair External Rotation 5 Normal Internal Rotation 4+ Good+ Comments pain IR Knee Strength Knee Manual Muscle Testing Right Flexion (S2) 5 Normal Extension (L3) 5 Normal Left Flexion (S2) 5 Normal Extension (L3) 5 Normal Therapeutic Exercises Supine Exercises self mob Supine Exercise Name L inf glide Bridge Supine Exercise Name DL w/bridge w/HS curl Side bilateral Reps/Minutes 10 SL bridge Supine Exercise Name SL on ball Side bilateral Reps/Minutes 8 stretch Supine Exercise Name piriformis w/towel roll Side left Reps/Minutes 30 secx2 Comments attempted ITB stretch but painful Standing Exercises SL Standing Exercise hip hike Name Side left Equipment Used rail Reps/Minutes 10 Comments mini hold clamshell Side left Equipment Used L3 Reps/Minutes 2x10 Comments cues set up squat Side bilateral Equipment Used L3 at knees, L4 Reps/Minutes 2x10 Comments cues depth and knee position Other Exercises Quadruped Ex Other Exercise Name 1. hip abd 2. bird dog w/Lvl 3 band Side bilateral Reps/Minutes 10 ea Comments cues core Physical Therapy Assessment Goals Three Receptionist Clerk Goal (LTG) Pt will report being able to hike for 1hr or greater by DC for improved completion of hobbies. 08/13/25: can't hike right now, can't even walk around the block. 5/10 knee pain arrival today. He did some diving and pain up/down ladder. Going up/down stairs doing well but if carrying weight causes irritation. Carrying weight getting in/out water to dive as long as not lateral movement. LTG Duration updated 08/13/25 Two Impairment LEFS score 54 at eval Receptionist Clerk Goal (LTG) Pt will demo improved LEFS score to 70 or better by DC for improved quality of life. 08/13/25 LEFS raw score 39, 50% maximal function. LTG Duration updated 08/13/25 One Short Term Goal (STG pt will be ind with HEP within 2 visits in order to ) progress toward emt intermediate therapy goals outside of therapy visits. 08/13/25: resisted clamshell, bridge with band, 08/13/25 added B single leg bridge Alf Goal (LTG) Pt will demo improved L hip IR strength to 5/5 by DC for improved functional stability with ADLS Assessment Summary Assessment Pt was limited by exercises d/t pain but adjusted HEP to be in comfortable range (small amount of pain) and still challenging muscles and gently stretching. He is indep with exercises at this time and PT is not improving pain or function. DC to indep HEP at this time to work on until he can get approval for surgery. At this time, PT can not help further and pt would benefit from follow up with orthopedic and encouraged to call ortho for further follow up. Physical Therapy Plan Frequency and Duration Frequency of 2x/Week Treatment Duration of 12 treatment (weeks) Plan of Care Start 07/12/25 Date Plan of Care End 10/04/25 Date Discharge Physical Therapy Discharge Reasons Plateau in Progress
== END 2025-08-22 09:29 | disposition home or self-care (01) ==
LOC: PHYS 07:30
PROVIDERS: Family Provider Internal Medicine; PCP Internal Medicine; Referring Provider Orthopaedic Surgery Adult Reconstructive Orthopaedic Surgery; Visit Provider Orthopaedic Surgery Adult Reconstructive Orthopaedic Surgery
DX: M16.12 Unilateral primary osteoarthritis, left hip (principal)
CPT/HCPCS: 97110; 97140; 97162

== ENCOUNTER 2025-10-21 08:37 | Day surgery (SDC) | payer OTHER, SELFPAY ==
[2025-10-15 08:02] VITALS: BMI 38.1
--- NOTE | 2025-10-21 | DI.RAD.S_ITS ---
PROCEDURE: XR HIP W PEL IF DONE LT 2V INDICATIONS: left belkis TECHNIQUE: 2 views of the hip were acquired. COMPARISON: [facility], SHANNA, XR HIP W PEL LT 2V, 10/21/2025, 14:23. FINDINGS: Bones: New left hip arthroplasty with normal alignment trade previous right hip arthroplasty is partially imaged. Soft tissues: Not well evaluated. IMPRESSION: No acute fracture. Normal alignment of the left hip arthroplasty. Dictated by: Codi Funes M.D. on 10/22/2025 at 9:55 Approved by: Codi Funes M.D. on 10/22/2025 at 9:56
--- NOTE | 2025-10-21 08:30 | DI.RAD.S_ITS ---
PROCEDURE: XR HIP W PEL IF DONE LT 2V INDICATIONS: ANTIONETTE TECHNIQUE: 2 view(s) of the hip acquired. COMPARISON: [facility], CR, XR HIP W PEL LT 2V, 10/21/2025, 13:50. FINDINGS: Bones: Patient is status post new left hip arthroplasty, with hardware components in expected positions. The hip joint appears congruent. The visualized bony structures appear intact. Right hip arthroplasty with normal alignment. Bilateral SI joint sclerosis noted. Lower lumbar spine degenerative disease. Soft tissues: Overlying postoperative changes are noted. No suspicious soft tissue densities. IMPRESSION: Expected post-operative appearance of a hip arthroplasty. Dictated by: Codi Funes M.D. on 10/22/2025 at 6:22 Approved by: Codi Funes M.D. on 10/22/2025 at 6:22
[2025-10-21] MEDS: ACETAMINOPHEN 325 MG TABLET 975 MG PO (08:58)
[2025-10-21] MEDS: MELOXICAM 7.5 MG TABLET 15 MG PO (08:59)
[2025-10-21 09:09] VITALS: BP 152/91; PULSE 72; RESP 16; TEMP 36.4; O2SAT 97
[2025-10-21] MEDS: LACTATED RINGERS 1,000 ML 42 ML IV ×2 (09:22→15:04)
--- NOTE | 2025-10-21 09:51 | PM.PREOP ---
Pre-operative Note Interval Note History & Physical reviewed/Exam performed by Physician: Yes Changes to H&P: Yes H&P completed within 30 days and has changed as indicated here:: He has a skin tag immediately adjacent to the planned incision site. I will remove it and send for pathology.
[2025-10-21] MEDS: TRANEXAMIC ACID 1,000 MG in SODIUM CHLORIDE 0.9% 100 ML 200 MG IV ×2 (11:15→13:39)
[2025-10-21] MEDS: KETOROLAC 30 MG/ML VIAL 15 MG INJ (11:30)
--- NOTE | 2025-10-21 11:51 | SUR.OPER ---
Supine on padded [place] table with bilateral legs secured in padded positioning boots and suspended in positioning spars, operative leg in traction per surgeon. Head on one pillow. Arm on non-operative side secured on padded armboard <90 degrees abduction. Arm on operative side padded and resting across chest then secured with tape over sheet. Padded perineal post in place per surgeon.
--- NOTE | 2025-10-21 13:42 | PM.OP.1 ---
Operative Date/Time/Diagnoses Date of procedure: 10/21/25 Time of procedure: 12:00 Pre-op diagnosis: Left hip osteoarthritis Post-op diagnosis: same Procedure & Clinicians Procedure: 1. Left total hip arthroplasty 2. Prophylactic fixation of left femur with cerclage cable 3. Excision of skin lesion (skin tag) from left femur Same procedure(s) as scheduled: Yes Surgeon: Adelso Cade Assisted?: Yes Rotary Cutter Feeder: Margoth Hatch Anesthesia Type: Spinal, Sedation and Local Operative Notes Findings: Severe arthritis Closure Type: primary Specimen(s): other (Left hip skin tag) Applied: implant(s) Estimated Blood Loss (mL): 350 Blood products transfused: none Procedure in detail: 1. Left Uncemented Direct Anterior Kirstin Total Hip Arthroplasty (66452) 2. Computer-Assisted Musculoskeletal Surgical Navigational Orthopedic Procedure Using Fluoroscopic Image Guidance (0054T) Implants: G7 PPS size 58 cup? Z1 femoral stem size 5 coxa vera? 40 mm +7 ceramic femoral head? Super cable Procedure Summary: This 55-year-old male patient had very high bone quality. A conjoined tendon release was necessary to access his femur. He had a very tight reduction at the conclusion of the case which required assistance through the [place] table for reduction. I felt a click when this occurred. I redislocated the hip and inspected the calcar and did not find any fractures. I palpated all around the femur and could not find any fractures however I did not have complete visualization at that point in the case as final implants were already in place so I reduced the hip, inspected in various angles for the presence of a fracture which I did not identify, and elected to place a prophylactic cerclage cable in order to ensure that if there was a fracture that occurred when I felt that subtle clicking during hip reduction that it would be held in place with a cerclage suture. Procedure in Detail: This patient was seen preoperatively and evaluated for hip pain which was refractory to numerous nonoperative treatment modalities. Their hip pain correlated with radiographic changes demonstrating significant degeneration in the hip joint. The risks and benefits of continued nonoperative management versus operative management were discussed at length and all of the patient?s questions were answered. Additional educational materials providing further details beyond our discussion in clinic were provided via a publicly available patient education video which included the incidence of medical complications associated with total hip arthroplasty, reasons for revision following total hip arthroplasty, and patient satisfaction rates following total hip arthroplasty. With this understanding of the risks inherent to the procedure, the patient elected to move forward with operative management. Following preoperative optimization, the patient was scheduled for surgery. The patient was met in the preoperative holding area the day of the procedure and all questions were answered. The patient?s nares were swabbed in order to decolonize them from MRSA. Informed consent was signed and the left limb was marked with indelible ink.? The patient was brought back to the operating room where anesthesia was induced. The patient was transferred to the [place] table and all bony prominences were padded. The operative site was prepped and draped in the usual sterile fashion. Prior to incision, tranexamic acid and cefazolin were administered. Operative templating images were displayed demonstrating the anticipated implant sizes and correct operative extremity. A timeout procedure was performed verifying the patient?s identity, medical comorbidities, allergies, relevant medications, anesthesia type and the surgical plan. All present were in agreement. The assistance of a physician product safety technical assistant was required for positioning, room setup, soft tissue retraction and wound closure. Without this assistance, the procedure would have been significantly more challenging and time consuming.?? Prior to incision there was a small skin tag immediately adjacent to the surgical site and I sharply excised this and placed a stitch in it. That was sent for pathology. A direct anterior approach to the hip was utilized. This was performed with a longitudinal incision through a Heuter interval. The incision was planned 2 cm distal and 2 cm lateral to the ASIS extending towards the lateral patella, in line with the muscle body of the TFL. Following incision, the subcutaneous tissue was dissected while taking care to avoid injury to the lateral femoral cutaneous nerve. The fascia overlying the TFL was identified by dissecting off the overlying fat and identifying perforating vessels to the TFL. The TFL fascia was incised and dissected away from the medial border of the TFL. A retractor was placed over the superior femoral neck between the abductors and the hip capsule and used to reflect the TFL laterally. A [place] self-retainer was then placed in the distal aspect of the wound between the TFL and the rectus femoris. This was tensioned to open up the direct anterior interval and the lateral circumflex vessels were identified and coagulated using electrocautery. The floor of the TFL fascia was incised, exposing the pericapsular fat overlying the hip capsule. A second cobra retractor was placed on the inferior femoral neck. A retractor was placed on the anterior wall of the acetabulum and used to tension the reflected head of rectus femoris, which was then released in order to limit soft tissue tension. A capsulotomy was made in the midline of the anterior hip capsule in line with the femoral neck ending at the vastus tubercle. The anterior retractor was removed as soon as the capsulotomy was completed in order to limit the amount of time that a soft tissue retractor remained on the anterior wall and limit tension on the femoral nerve. Tag stitches were placed in the superior and inferior leaflets of the hip capsule. An Patric[place] soft tissue retractor was introduced over the tag stitches and tensioned in the interval between the rectus femoris and the TFL in order to retract and protect those muscles. The cobra retractors were replaced intracapsularly, with one over the superior neck in the pocket created by the base of the greater trochanter and the other on the femoral head. The capsulotomy was extended laterally to the base of the greater trochanter and medially to the lesser trochanter. This required externally rotating the hip. Once the lesser trochanter had been identified, a neck cut was planned according to measurements from preoperative templating. A ruler was cut at the length measured between the superior aspect of the lesser trochanter and the collar of the prosthesis. This line was extended towards the inferior aspect of the lateral cobra retractor to plan a cut which would leave minimal residual femoral neck laterally. The neck was cut at 60 degrees of external rotation along that line. A second cut was performed to remove a large napkin ring and facilitate head extraction. The napkin ring cut and femoral head were removed.?? A broad anterior wall retractor was placed between the labrum and the anterior capsule so that the anterior capsule would prevent capturing and pinching the femoral nerve anteriorly. An additional retractor was placed on the posterior wall. External rotation and traction were applied through the [place] table so that the cut surface of the femoral neck would not restrict access to the acetabulum. The labrum was excised sharply and the pulvinar was excised with electrocautery to limit bleeding from branches of the obturator artery. Acetabular reamers were selected based on preoperative templating and measurements of the excised femoral head. These were introduced into the acetabulum. Fluoroscopy was utilized to replicate a standing AP pelvis radiograph by centering over the pelvis, rotating until there was appropriate symmetry between the obturator foramen, and introducing caudal tilt to match the position of the pubic symphysis relative to the sacrococcygeal junction according to the patient?s anatomy. Once satisfied with the reaming depth corresponding to the preoperative template and the pinch fit between the columns, an appropriate sized acetabular cup was selected which would provide 1 mm of press-fit. This cup was introduced and manipulated until appropriate abduction and anteversion angles were obtained with careful attention to appropriate abduction and anteversion angles as evaluated by the position of the cup relative to the anterior and posterior verde of the acetabulum and the AP fluoroscopy which recreated the patient?s standing radiograph. The cup was impacted into place. Peripheral osteophytes were removed. The acetabular liner was then placed with care to ensure locking of the locking mechanism. Attention was then turned to the femur. All retractors were removed, traction was released, a retractor was placed in the interval between the hip capsule and the gluteus minimus. The lateral capsule was released using electrocautery. Traction was released and a [place] hook was placed posteriorly around the proximal femur at the level of the vastus ridge. The table height was lowered in order to restrict the tension on the anterior structures during hip hyperextension to limit the risk of femoral nerve palsy. With traction off and the hip at 90 degrees of external rotation, the hip was hyperextended and adducted while manually elevating the femur away from the acetabulum with the [place] hook to avoid hooking the greater trochanter on the pelvis. An asymmetric retractor was placed over the calcar and a broad double-pronged retractor was placed over the greater trochanter. The tag stitch capturing the lateral leaflet of the capsule was moved to the medial side, leaving the conjoined and piriformis tendons isolated in the face of the greater trochanter. The hip was externally rotated and elevated. A release of the conjoined tendon was necessary in order to obtain adequate exposure for broaching. The canal was opened with an opening broach and a rasp was used to remove cancellous bone. A rongeur was used to remove the residual lateral bone at the base of the greater trochanter to avoid placing the stem in varus. The femur was then broached to the appropriate sized stem yielding good rotational fit and fill of the canal as well as appropriate version of the stem trial. Neck and head trials were placed, all retractors were removed and the hip was returned to neutral abduction and extension. I then reduced the hip and manually trialed it before changing surgical gloves. Initial trialing was performed with a size 5 broach, a coxa vera offset neck and a +0 head. I initially manually externally rotated the hip and found that it immediately dislocated so I switched to a +3.5 head. This resolved the instability.. I then locked the hip in 45 degrees of external rotation and dropped it to the floor with traction off which demonstrated no instability. An ortho grid overlay image demonstrated that there was a slight decrease in offset and a slight increase in leg length relative to the other side. AP and lateral hip fluoroscopic images were obtained to evaluate the broach size which demonstrated good canal fill. The hip was dislocated and I returned to the broaching position. Based on my evaluation during initial trialing I planned to sink the stem further and then upsize the head. I was able to do this and confirmed rotational stability prior to placement of the stem. The definitive stem was placed and the trunnion was cleaned and dried. I placed a ceramic head onto the trunnion and impacted it into place on the [place]man taper.?? All retractors were removed and the hip was reduced. A dilute mixture of betadine and peroxide was used to bathe the soft tissues during final fluoroscopic assessment. Appropriate component positioning was confirmed on an AP pelvis radiograph with the operative and nonoperative legs in 40 degrees of external rotation, evaluating leg length and offset. Appropriate stem fill was evaluated on AP and lateral hip radiographs. No previously unrecognized fractures were identified on these radiographs. There was no hip instability with maximum (110?) external rotation as well as a 45 degree drop test. During reduction I had noted a click. The hip was very tight and while manually externally and internally rotating it and applying in-line traction I could feel it moving as a unit. I palpated all around the femur and could not identify any fractures. I dislocated the hip and inspected it at the calcar and did not note any cracks there. Brought in x-ray and obtained x-ray images at various angles which did not demonstrate any fractures. Out of an abundance of caution given that I could not visualize the entire femur and there was a possibility that that subtle sound I had heard represented a nondisplaced fracture I elected to place a prophylactic cerclage cable. I passed a cable around the femur with the hip in neutral extension and tensioned it. The hip was copiously irrigated with pulse lavage. The capsule was closed with absorbable interrupted suture. The TFL fascia was closed with barbed suture while carefully protecting the lateral femoral cutaneous nerve from entrapment. A mixture of Ropivacaine, Epinephrine and Toradol was infiltrated throughout the soft tissues. The skin was closed with 2-0 and 3-0 sutures. Surgical glue was applied and a soft dressing was placed.??The sponge, instrument and needle counts were reported as being correct at the end of the case.??No obvious complications occurred. The patient was transferred from the [place] table back to a stretcher. The patient emerged from anesthesia without difficulty and was taken to the PACU in a stable condition.? Plan for aftercare: No hip precautions Weightbearing as tolerated Aspirin 81 twice per day for DVT prophylaxis Anticipate discharge home today Multimodal pain regimen with no IV opioids ordered Follow up at [facility] in 2 weeks Complications: none Post-operative Condition: stable Disposition: same day surgery
[2025-10-21 14:25] VITALS: BP 101/59; PULSE 64; RESP 22; TEMP 36.2; O2SAT 95
[2025-10-21 14:45] VITALS: BP 110/54; PULSE 55; RESP 16; O2SAT 96
[2025-10-21 15:05] VITALS: BP 99/53; PULSE 55; RESP 14; TEMP 36.3; O2SAT 93
[2025-10-21 16:04] VITALS: BP 118/74; PULSE 74; RESP 16; TEMP 36.3; O2SAT 98
--- NOTE | 2025-10-21 16:08 | SUR.PHASEII ---
PT called for evaluation. at bedside. Pt able to stand firmly on feet with walker and 2 nurse assist. VSS.
--- NOTE | 2025-10-21 16:39 | PT.IIE ---
Current Diagnoses Unilateral primary osteoarthritis, left hip (10/21/25) Surgery Performed Operation Date: 10/21/25 11:15 Actual Procedures p Total Hip Arthroplasty/Anterior Approach, Prophylactic Left Femur Fixation, Excision Left Hip Skin Tag(Left) - Adelso Cade MD Surgical History (Last Updated 10/15/25 @ 08:01 by Silvana Gill, RN) Hx of colonoscopy (10/2018) S/P total hip resurfacing Medical History (Last Updated 10/15/25 @ 08:39 by Silvana Gill, RN) HLD (hyperlipidemia) HTN (hypertension) Primary osteoarthritis of left hip Right bundle branch block (RBBB) Physical Therapy Inpatient Evaluation/Re-Eval M1 PT IP Prior Functional Status Start: 10/21/25 16:41 Freq: NEEDED Status: Active Protocol: Document 10/21/25 16:10 DCW (Rec: 10/21/25 16:53 DCW [id number]) Medical Review Social History Household Members spouse Living Arrangements House Number of Floors ( One Floor Floors) Number of Stairs To 2 AMALIA, no railing Enter/Railing? M2 PT-IP Current Condition Start: 10/21/25 16:41 Freq: NEEDED Status: Active Protocol: Document 10/21/25 16:10 DCW (Rec: 10/21/25 16:53 DCW [id number]) Physical Therapy Current Condition Current Condition Evaluation Date 10/21/25 Treatment Diagnosis L anterior ANTIONETTE Onset Date 10/21/25 M3 PT-IP Subjective Start: 10/21/25 16:41 Freq: NEEDED Status: Active Protocol: Document 10/21/25 16:10 DCW (Rec: 10/21/25 16:53 DCW [id number]) Subjective Physical Therapy Visit Type Type Initial Evaluation Visit Start Time 16:10 Visit Stop Time 16:39 Notes Pt in PACU bed upon therapist arrival, notes he is feeling well, agreeable to participate in therapy. Hopes to return home this evening. Number of [employer] Visits 0 Physical Therapy Visit Comments Patient Comments This is amazing. Therapy Pain Assessment Pain When Pain Assessed During Weight Bearing Pain Present Pain Present Pain Reported Location Left Hip Intensity 5 Scale Used Numeric (0 - 10) M4 PT-IP Mobility and Gait Start: 10/21/25 16:41 Freq: NEEDED Status: Active Protocol: Document 10/21/25 16:10 DCW (Rec: 10/21/25 16:53 DCW [id number]) PT-Bed Mobility Assessment Rolling Type of Rolling Roll to Right Supine to Sit Supine to Sit Standby Assistance Sit to Supine Sit to Supine Standby Assistance PT-Transfer Assessment Sit to and From Stand Sit to and from Standby Assistance Stand Equipment Transfer Assistive Bed Rail,Gait Belt,Front Wheeled Walker Device Orthotic/Prosthetic No Devices or Brace: Transfer Ability Level of Assist Standby Assistance Comments Mobility Comments Pt able to perform bed mobility and sit<->stand transfers SBA with use of FWW Gait Assessment Gait Gait Assistance Independent Required: Distance (Feet) 120 Able to Maintain Yes Weight Bearing Status During Gait Assistive Devices Assistive Device Gait Belt,Front Wheeled Walker Orthotic/Prosthetic No Devices or Brace: Gait Deviations General Gait Pattern Antalgic,Decreased Stride Length,Decreased Feet Clearance,Flexed Trunk,Lateral Trunk Lean,Step-to Gait Factors Limiting Gait Function Factors Limiting Decreased Activity Tolerance,Decreased Strength,Pain Gait Function Comments Gait Comments Pt ambulated around PACU 120' SBA using FWW. Responded well to verbal cues to increased step length and maintain momentum through FWW. Stair Climbing Assessment Evaluation Level of Assist On Contact Guard Assistance Stairs Devices Stair Climbing Front Wheel Walker Assistive Devices Technique/Endurance Stair Climbing Ascend and Descend Direction Stair Climbing Step to Step Technique Number of Steps 1 Climbed Query Text: Stair Climbing Set # 3 Repetitions (reps) Comments Stair Climbing Verbal cues for sequencing ascending/descending steps. Comments Pt noted understanding M5 PT-IP Objective Assessments Start: 10/21/25 16:41 Freq: NEEDED Status: Active Protocol: Document 10/21/25 16:10 DCW (Rec: 10/21/25 16:53 DCW [id number]) Orientation Orientation/Cognition Level of Alertness Alert Orientation Name,Birthday,Month,Date,Year,Place,Situation Language Function No Deficits Noted Ability Safety Awareness Understands Safety Issues Memory Description No Deficits Noted Gross Range of Motion Lower Extremity ROM Assessment Left Impaired Strength Lower Extremity Strength Assessment Left Impaired Comments Strength Comments Able to lift surgical hip against gravity, good quad and glute control M6 PT-IP Treatment Start: 10/21/25 16:41 Freq: NEEDED Status: Active Protocol: Document 10/21/25 16:10 DCW (Rec: 10/21/25 16:53 DCW [id number]) Physical Therapy Treatment Other Treatments Other Treatment Reviewed post-op exercises, including Ankle pumps, QS, Performed GS, and heel slides. Handout provided M7 PT-IP Assessment and Plan Start: 10/21/25 16:41 Freq: NEEDED Status: Active Protocol: Document 10/21/25 16:10 DCW (Rec: 10/21/25 16:53 DCW [id number]) PT Summary Assessment and Plan Potential Rehabilitation Good Potential Status of Condition Unstable at Evaluation Summary Impairments Pain,ROM,Strength,Balance Assessment Summary Pt doing very well day of surgery s/p left anterior ANTIONETTE . Pt exhibits good ability to perform transfers and ambulation with use of FWW, responded well to feedback and cues. Pt exhibited ability to ascend and descend steps, which is necessary for his home with 2 steps to enter. Pt noted no increased pain with activity, pain described as a 5/10, but that's been my normal for months. Pt appears to be appropriate to discharge home with support from a safety perspective when cleared medically. Frequency of Treatment Frequency Of Discharge Treatment Weight Bearing Status Weight Bearing Weight Bear as Tolerated Status Recommendations To Nursing Amount of Assist Standby Assistance Needed Discharge Recommendations PT Discharge Home with Assistance Recommendations Transportation Needs Private Vehicle at Discharge
[2025-10-21 17:00] VITALS: BP 124/84; PULSE 78; PULSE 80; RESP 16; RESP 18; TEMP 36.2; O2SAT 98; O2SAT 998
== END 2025-10-21 17:35 | disposition home or self-care (01) ==
PROVIDERS: Family Provider Internal Medicine; PCP Internal Medicine; Referring Provider Orthopaedic Surgery Adult Reconstructive Orthopaedic Surgery; Visit Provider Orthopaedic Surgery Adult Reconstructive Orthopaedic Surgery
PROC: (CPT 27130; principal; 2025-10-21 11:15)
DX: M16.12 Unilateral primary osteoarthritis, left hip (principal); M25.752 Osteophyte, left hip
CPT/HCPCS: 27130; 73502; 76000; 97161; 97535; C1776; C1713; J0689; J1171; J1885; J2704; J7050; J7120